=== PATIENT | female | born 1950 | race Caucasian/White ===

== ENCOUNTER 2018-09-19 10:33 | Emergency (ER) | payer MEDICARE, MEDICAID ==
--- OUTSIDE RECORDS SUMMARY | 2018-09-19 10:52 | XMS REPORT | Continuity of Care Document ---
:1950 External Reference #:[id number] Author Name Teena Ivan Care Team Providers Name Role Phone Dianne Cabello DO Primary Care Physician Unavailable Payers Date Identification Numbers Payment Provider Subscriber Policy Number: [id number] [employer] Medicare Angeles Farias PayID: [id number] [address] [place] [address] Problems Active Problems Provider Date Anxiety state Dallas Loving MD Onset: 09/08/2018 Orthopnea Dallas Loving MD Onset: 09/08/2018 Hyperlipidemia screening Dallas Loving MD Onset: 09/08/2018 Tinnitus of vascular origin Dallas Loving MD Onset: 09/08/2018 Heart murmur Dallas Loving MD Onset: 09/08/2018 Preoperative cardiovascular examination Dallas Loving MD Onset: 09/08/2018 Family History Date Family Member(s) Observation Comments General Diabetes General Heart Disease General Hypertension General Cancer Social History Type Date Description Comments Sex Unknown Lives With Sister Occupation Retired ETOH Use Denies alcohol use Tobacco Use Start: Unknown Patient has never smoked Smoking Status Reviewed: 09/08/18 Patient has never smoked Exercise Type/Frequency Exercises sporadically Allergies, Adverse Reactions, Alerts Active Allergies Reaction Severity Comments Date Codeine 06/30/2018 Medications Active Medications SIG Qnty Indications Ordering Provider Date Oxycodone-Acetaminophe 1 tab by mouth 42tabs M16.12 Gera Ayoub M.D. 09/03 n every 4 hours as 5-325mg Tablets needed pain Rexulti take 1 tab daily 30tabs Dallas Loving MD 07/10/2018 2mg Tablets Toprol XL 1/2 by mouth 30tabs Dianne Cabello 06/30/2018 25mg Tablets ER every day DO 24HR Miralax twice a day as 119gm K58.1 Dianne Cabello, 06/30/2018 [id number] Powder needed DO Nexium 24HR 1 by mouth every Unknown 20mg Tablets day DR Valacyclovir HCL 1 by mouth every Unknown 1gm 8 hours x 7 days Tablets as needed. Alprazolam 1/2 tab as 30tabs F41.9 Dallas Loving MD 2mg Tablets needed for anxiety, panic attacks Hydrocodone-Acetaminop 0.5 tab by mouth 30tabs Gera Ayoub M.D. hen every 6-8 hours 5-325mg Tablets as needed for pain Triamterene/Hydrochlor pt taking one a Unknown othiazide day 37.5-25mg Capsules Motrin Ib take 3 tabs Unknown 200mg Tablets three times per day as needed for pain History Medications Fluoxetine HCL not taking----1 by 30tabs F32.9 Dianne Cabello, 06/30/2018 - (PMDD) mouth every day DO 07/22/2018 20mg Tablets Metoprolol 1 by mouth every day Unknown - Succinate ER 06/30/2018 50mg Tablets ER 24HR Vital Signs Date Vital Result Comment 09/08/2018 4:08pm Height 61 inches 5'1" Weight 107.00 lb Heart Rate 68 /min BP Systolic 110 mmHg BP Diastolic 69 mmHg Respiratory Rate 16 /min Body Temperature 98.8 F Pain Level 8 O2 % BldC Oximetry 98 % BMI (Body Mass Index) 20.2 kg/m2 09/03/2018 3:23pm Height 61 inches 5'1" Weight 107.00 lb BP Systolic 118 mmHg BP Diastolic 64 mmHg Respiratory Rate 20 /min Body Temperature 98.4 F Pain Level 8 BMI (Body Mass Index) 20.2 kg/m2 08/18/2018 3:16pm Weight 107.00 lb Heart Rate 68 /min BP Systolic 102 mmHg BP Diastolic 64 mmHg Respiratory Rate 16 /min Body Temperature 96.5 F O2 % BldC Oximetry 97 % 08/11/2018 3:14pm Height 61 inches 5'1" Weight 102.00 lb BP Systolic 110 mmHg BP Diastolic 68 mmHg Respiratory Rate 18 /min Body Temperature 98.2 F Pain Level 8 BMI (Body Mass Index) 19.3 kg/m2 07/22/2018 2:17pm Weight 102.00 lb Heart Rate 64 /min BP Systolic 128 mmHg BP Diastolic 72 mmHg Respiratory Rate 16 /min O2 % BldC Oximetry 98 % 06/30/2018 2:41pm Height 61 inches 5'1" Weight 103.00 lb Heart Rate 64 /min BP Systolic 90 mmHg BP Diastolic 64 mmHg Body Temperature 99.3 F Pain Level 7 O2 % BldC Oximetry 96 % BMI (Body Mass Index) 19.5 kg/m2 Encounters Type Date Location Provider Dx Diagnosis Office Visit 08/18/2018 [facility] Internal Dianne Cabello, H93.A2 Pulsatile 3:00p Medicine - Suite DO tinnitus, left ear R F32.9 Major depressive disorder, single episode, unspecified F41.9 Anxiety disorder, unspecified Office Visit 08/11/2018 [facility] Gera Ayoub, 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 at [facility]09/26/2018 3:20 pm - Dianne Cabello DO at [facility] Internal Medicine - [address]/22/2018 1:45 pm - Gera Ayoub M.D. at [facility] - Dallas Loving MDZ01.810 Encounter for preprocedural cardiovascular cndwzawrkugA33.1 Cardiac murmur, lbtahzqynmrM87.A2 Pulsatile tinnitus, left earZ13.220 Encounter for screening for lipoid rwvioadttG58.01 YojaaivyoS60.9 Anxiety disorder, unspecified
--- OUTSIDE RECORDS SUMMARY | 2018-09-19 10:52 | XMS REPORT | Continuity of Care Document ---
:1950 External Reference #:[id number] Author Name GarciaJojo Care Team Providers Name Role Phone Dianne Cabello DO Primary Care Physician Unavailable Payers Date Identification Numbers Payment Provider Subscriber Policy Number: [id number] [employer] Medicare Angeles Farias PayID: [id number] [address] [place] [address] Family History Date Family Member(s) Observation Comments General Diabetes General Heart Disease General Hypertension General Cancer Social History Type Date Description Comments Sex Unknown Lives With Sister Occupation Retired ETOH Use Denies alcohol use Tobacco Use Start: Unknown Patient has never smoked Smoking Status Reviewed: 09/03/18 Patient has never smoked Exercise Type/Frequency Exercises [...] Toprol XL 1/2 by mouth 30tabs Dianne Cabello, 06/30/2018 25mg Tablets ER every day DO [...] 24HR Vital Signs Date Vital Result Comment 09/03/2018 3:23pm Height 61 inches 5'1" Weight [...] Location Provider Dx Diagnosis Office Visit 08/18/2018 [facility] Dianne Cabello, H93.A2 Pulsatile 3:00p Medicine - Suite DO tinnitus, left ear R F32.9 Major depressive disorder, single episode, unspecified F41.9 Anxiety disorder, unspecified Office Visit 08/11/2018 Orth[facility] Gera Ayoub, 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 at [facility]09/26/2018 3:20 pm - Dianne Cabello DO at [facility] Internal Medicine - [address]/22/2018 1:45 pm - Gera Ayoub M.D. at [facility]09/03/2018 - Gera Ayoub M.D.M16.12 Unilateral primary osteoarthritis, left hipNew Medication:Oxycodone-Acetaminophen 5-325 mg - 1 tab by mouth every 4 hours as needed painFollow up:Follow up: Getting ready for total hip left Use the walker please Rest some Will try some percocet.
[2018-09-19 12:28] VITALS: BP 146/103
== END 2018-09-19 13:52 | disposition left against medical advice (07) ==
LOC: ED 10:33
DX: Z53.21 Procedure and treatment not carried out due to patient leaving prior to being seen by health care provider (principal)
CPT/HCPCS: 99281

== ENCOUNTER 2018-10-07 05:40 | Inpatient (IN) | payer MEDICARE, MEDICAID ==
--- NOTE | 2018-09-22 15:58 | HP ---
HISTORY AND PHYSICAL: DATE OF ADMISSION: 10/07/18 The patient is entering [facility] on 10/07/18 for a left total hip replacement. CHIEF COMPLAINT: Left hip region pain, groin pain as well. HISTORY OF PRESENT ILLNESS: She has had problems with this hip increasingly over the last couple of years. Her right hip had a hip replacement at [place], [place], in [address] Yancey at the [facility] in [place]. Because the left hip has been progressively totally disabling her and severely arthritic with bone-on -bone arthritis by radiograph, the left total hip replacement has now been recommended. PAST MEDICAL HISTORY: Currently under the care with Dr. Loving and he has been helping her with benzod iazepine dependence with tapering doses of alprazolam. Medical problems include anxiety, orthopnea, hyperlipidemia, tinnitus, heart murmur. No hypertension. No chest pain. She has never been smoker . She does not drink. She had breast augmentation surgery years ago and she does have breast implan ts. No allergies to metal. She has had some hypertension. She has had anxiety and depression. No GI problems. No problems, although she has used an lafr-xof-bhuntdo acid office technologist. MEDICATIONS: Her other meds include recent trial of oxycodone which she threw away because it was ma denzel her sick and she now has a prescription for hydrocodone 5/325. Also triamterene/hydrochlorothia zide 37.5/25 mg 1 a day, valacyclovir 1 g by mouth every 8 hours for 7 days when needed, Toprol-XL 25 mg one-half tablet by mouth everyday, Rexulti 2 mg 1 a day for depression. ALLERGIES: CODEINE. FAMILY HISTORY: Positive for diabetes, cardiac, hypertension, and cancer. SOCIAL HISTORY: Lives with her sister temporarily. She is retired. No tobacco use. No alcohol use . She is a walker and a swimmer and enjoys painting. She is right handed. REVIEW OF SYSTEMS: Negative for fevers, chills, chest pain, shortness of breath. She has not had any GI or problems. She has had some weakness, some fatigue, and depression and anxiety. PHYSICAL EXAMINATION GENERAL: Well nourished, well developed, not acutely distressed. VITAL SIGNS: 5 feet 1 inch in height, 105 pounds. Pulse is 80, blood pressure 108/70. EXTREMITIES: Antalgic gait on the left. The left straight-leg raising in painful in the left groin, in the right is not. Left hip nontender anteriorly, laterally, and posteriorly. No masses are appr eciated. Left hip flexion is painful at 75 degrees flexion, abduction 30 degrees with pain, extensio n 20 degrees with pain, rotation is limited to ER, 15 IR, neutral with pain, though no swelling of th e left leg, ankle and foot, certainly possibly some atrophy around the left hip and thigh. The left d orsalis pedis pulse is 2+ and no ankle edema bilaterally. DIAGNOSTIC STUDIES: Radiographs showed the right total hip replacement in satisfactory alignment. The left hip has severe arthritis with vqzr-ws-szhr sclerosis, cyst formation, and an osteophyte form ation. IMPRESSION: Severe arthritis of the left hip. PLAN: Left total hip replacement. Goals, risks, and complications were reviewed with her and her qu estions were answered. [id number]/[facility] #: [id number]
[~2018-10-07 05:40] MED LIST: Buffered Lidocaine 1% SYRIN* 1 ML/SYRINGE INTRADERM ONE; Tranexamic Acid 1,000 MG in NS 0.9% 50 ML* (outpatient use) IV SCH
[2018-10-07] MEDS ORDERED: Lactated Ringers 1000 ML Bag* 1,000 ML IV SCH (06:00)
[2018-10-07] MEDS ORDERED: ceFAZolin 2 GM in NS PREMIX(*) 2 GM/100 ML BAG IVPB ONE (06:21)
[2018-10-07] MEDS ORDERED: Buffered Lidocaine 1% SYRIN* 1 ML/SYRINGE INTRADERM ONE (06:21)
[2018-10-07] MEDS ORDERED: Ondansetron INJ* 2 MG/ML VIAL ONE (07:08)
[2018-10-07] MEDS ORDERED: Dexamethasone IV* 4 MG/ML 1 ML (4 MG) ONE (07:08)
[2018-10-07] MEDS ORDERED: fentaNYL* 50 MCG/ML 2 ML VIAL (100 MCG VIAL) ONE ×4 (07:08→10:29)
[2018-10-07] MEDS ORDERED: Propofol* 10 MG/ML 20 ML BTL ONE (07:08)
[2018-10-07] MEDS ORDERED: Lidocaine 2% PF * 5 ML VIAL ONE (07:08)
[2018-10-07] MEDS ORDERED: KETAMINE HCL* 50 MG/ML 10 ML VIAL ONE (07:09)
[2018-10-07] MEDS ORDERED: Midazolam* 1 MG/ML 5 ML VIAL (5 MG) ONE (07:09)
[2018-10-07] MEDS ORDERED: Bupivacaine 0.5%* 50 ML MDV VIAL ONE (07:31)
[2018-10-07] MEDS ORDERED: Bupivacaine 0.5% W/EPI SDV* 10 ML VIAL INJ ONE (07:31)
[2018-10-07] MEDS ORDERED: Cisatracurium* 2 MG/ML MDV 5 ML ONE (07:34)
[2018-10-07] MEDS ORDERED: EPHEDrine (Pressors)* 50 MG/ML VIAL ONE (08:38)
[2018-10-07] MEDS ORDERED: HYDROmorphone INJ1* 1 MG/ML SYRINGE ONE ×2 (09:14→10:29)
[2018-10-07] MEDS ORDERED: Naloxone* 0.4 MG/ML 1 ML VIAL IV PRN (09:15)
[2018-10-07] MEDS ORDERED: Ondansetron INJ* 2 MG/ML VIAL IV PRN (09:15)
[2018-10-07] MEDS ORDERED: Ketorolac INJ* 30 MG/ML 1 ML VIAL ONE (09:16)
[2018-10-07] MEDS ORDERED: Glycopyrrolate IV* 0.2 MG/ML 1 ML VIAL ONE (09:23)
[2018-10-07] MEDS ORDERED: Neostigmine Methylsulfate* 1 MG/ML 10 ML VIAL (1 mg/ml) ONE (09:23)
[2018-10-07] MEDS ORDERED: diPHENhydraMINE IV* 50 MG/ML 1 ml VIAL (BENADRYL) IV PRN (09:54)
[2018-10-07] MEDS ORDERED: Cyclobenzaprine TAB* 10 MG PO PRN (09:54)
[2018-10-07] MEDS ORDERED: oxyCODONE TAB* 5 MG TAB PO PRN (09:54)
[2018-10-07] MEDS ORDERED: diPHENhydraMINE PO* 25 MG PO PRN (09:54)
[2018-10-07] MEDS ORDERED: Morphine 4 MG/ML VIAL (1 ml) 4 MG/ML VIAL IV PRN (09:54)
[2018-10-07] MEDS ORDERED: Magnesium Hydroxide LIQ* 30 ML UDC PO PRN (09:54)
[2018-10-07] MEDS ORDERED: LINACLOTIDE 72 MCG PO PRN (09:58)
[2018-10-07] MEDS ORDERED: ValACYclovir (*) 1 GM TAB PO PRN (09:58)
[2018-10-07] MEDS: fentaNYL* 50 MCG/ML 2 ML VIAL (100 MCG VIAL) IV PRN ×2 (10:41→11:13)
[2018-10-07] MEDS: HYDROmorphone INJ1* 1 MG/ML SYRINGE IV PRN ×2 (10:57→11:30)
[2018-10-07] MEDS ORDERED: Enalaprilat IV* 1.25 MG/ML 2 ML VIAL (2.5 MG) ONE (11:42)
--- NOTE | 2018-10-07 11:55 | OP ---
CC: [facility] Internal Medicine, Dr. Loving; Dr. Dianne Cabello * DATE OF OPERATION: 10/07/18 - ROOM #343 DATE OF : 54 SURGEON: eGra Ayoub MD. BOOKKEEPING SERVICE SALES AGENT: HARLEEN Singletary, registered sales assistant, and Krystin Gonzales. ANESTHESIOLOGIST: Dr. Wang. ANESTHESIA: Endotracheal tube, general. PRE-OP DIAGNOSIS: Severe arthritis of the left hip. POST-OP DIAGNOSIS: Severe arthritis of the left hip. OPERATIVE PROCEDURE: Left total hip replacement. COMPONENTS UTILIZED: [employer] Continuum cup 46 mm outer diameter with an elevated liner placed posteriorly for a 28 head, on the femoral side an M/L taper standard reduced neck 7.5 and the head is a -3.5, 28 mm cobalt chrome. COMPLICATIONS: There were no complications. DRAINS: There were no drains. ESTIMATED BLOOD LOSS: 200 mL. Replacement crystalloid fluids. INDICATIONS: Severe arthritis of the left hip. It has been no longer responsive to nonoperative care. She has had a right total hip replacement done several years ago in [place]. DESCRIPTION OF PROCEDURE: The patient was brought to the operating room and placed on the operating room table in the supine position. Following the administration of general anesthetic, insertion of an endotracheal tube, Chambers catheter was inserted. The patient was carefully placed on the right side with an axillary pad on the right downside and I checked to see that there is no pressure on the peroneal nerve at the fibular head. The pelvis was secured over the ASIS and the sacrum with a hip positioner and a folded blanket was placed under the right greater trochanter to bring the left hip closer to the ceiling. The groin was sealed off. The left hip was given a preliminary chlorhexidine prep and then a formal ChloraPrep from the left flank to the foot. After prepping, draping, and sealing off, we did our universal protocol time-out confirming Angeles Farias and the plan for left total hip replacement. We all agreed and we proceeded. The hip was approached with a slightly curving posterolateral skin incision going from the greater trochanter distally for 2 inches and curving proximally for approximately 2 inches. The skin and subcu divided. Careful hemostasis checked and achieved throughout the case utilizing electrocautery. The fascia chidi was opened in line with the skin incision over the greater trochanter. A Charnley retractor was inserted. The trochanteric bursa was rubbed posteriorly. The gluteus medius was protected first exposing the piriformis and the conjoint tendon. Each of these tendons was marked with a #2 Surgidac suture and the hip was entered going along the superior side of the pyriformis tendon and then careful posterior approach staying on the bone. The hip had some clear straw-colored synovial fluid. The gluteus medius was also protected with a Hohmann retractor. Superior capsulotomy was done and then the posterior capsulotomy was completed. The hip was dislocated without any difficulty. The femoral neck was marked about a fingerbreadth proximal to the lesser trochanter. The femoral head and neck removed with a saw. Retraction was obtained for the acetabulum with sharp Hohmann's anteriorly and posteriorly , blunt Hohmann's superiorly and inferiorly. The labrum was excised posteriorly , superiorly, and anteriorly. There was medial osteophyte. There was medial soft tissues that were removed entirely and then reaming was done 42 through 46 , and at 46, we had nice bleeding subchondral and cancellous bone. A 46 Continuum cup was impacted into position in 45 degrees of abduction, 20 degrees of anteversion with one screw inserted superiorly. Elevated liner for a 28 head was placed posteriorly. Acetabulum was packed and attention was turned to the femoral side. On the femoral side, we used a canal finder, trochanteric reamer, lateralizer, broaching 4 through 7.5. At 7.5, we did a reduction with a reduced nice +0 head with nice tight fit. A reduced neck M/L taper standard 7.5 stem was impacted into position in 15 to 20 degrees of anteversion. This stem seemed slightly proud. A trial reduction was done with a -3.5, 28 mm head with nice fit, negative push , pull, and extension. No tendency towards levering, flexion of 90 degrees, allowed adduction of 30 to 40 degrees, and internal rotation of 30 to 40 degrees prior to dislocation. The trunnion was cleaned and a -3.5, 28 mm head was impacted into position. The hip was reduced, careful hemostasis checked and achieved as we closed, and we irrigated several times with saline. We swabbed the soft tissues with clean lap sponges. The pyriformis and conjoint tendon were reapproximated through two drill holes to the posterior superior greater trochanter with the same stitches that we used on the way in, and the fascia chidi then closed with interrupted #1 [id number] Vicryl sutures, the fascia of gluteus raquel with the same. Deep subcu closed with 0 Vicryl, superficial subcu 2-0 Vicryl, and then jose rafael on the skin. The skin was washed and dried and covered with Betadine- soaked Release, followed by sterile gauze, ABD pad, and then paper tape. infiltrated with 40 mL of 0.5% Marcaine without epinephrine, and we also used Ancef perioperatively and tranexamic acid was also given at the start of the case. The patient was returned to the hospital bed in the recovery room in stable and satisfactory condition having tolerated the procedure very well. [id number]/[facility] #: [id number] SHANTELL
[2018-10-07] MEDS: Lactated Ringers 1000 ML Bag* 1,000 ML IV SCH ×2 (12:55→22:40)
[2018-10-07] MEDS: traMADol TAB* 50 MG PO SCH ×2 (13:57→20:50)
[2018-10-07] MEDS: HYDROcodone/ACETAMIN 5-325 MG* 1 TAB PO PRN ×3 (13:58→22:38)
[2018-10-07] MEDS: ALPRAZolam TAB* 0.5 MG PO PRN ×2 (13:58→22:38)
[2018-10-07] MEDS ORDERED: ALPRAZolam TAB* 0.5 MG PO SCH (14:00)
[2018-10-07] MEDS: Acetaminophen TAB* 325 MG PO SCH ×2 (14:05→21:46)
[2018-10-07] MEDS ORDERED: Melatonin 3 MG TAB PO PRN (14:12)
--- NOTE | 2018-10-07 14:20 | CONS ---
CC: Dr. Loving; Dr. Cabello; Dr. Ayoub * CONSULTATION REPORT: DATE OF CONSULT: 10/07/18 PRIMARY CARE PROVIDER: Dr. Loving, Dr. Cabello at [facility]. REQUESTING PHYSICIAN: Dr. Ayoub. ATTENDING PHYSICIAN: Dr. Martini (dictated by HARLEEN Pendleton). REASON FOR CONSULTATION: Co-medical management. HISTORY OF PRESENT ILLNESS/HOSPITAL COURSE: For full and complete details, please refer to history and physical dictated on 09/22/[address] Ayoub, but in short, Ms. Farias is a 68-year-old female with a past medical history of hypertension, depression, and anxiety, who presented to [facility] today for an elective left total hip arthroplasty. She is seen in her room postoperatively. She complains of a dull pain in the left hip, rated at 6-7/10. She states she feels a little shaky and hungry, but denies palpitations, dizziness, lightheadedness, headache, nausea, chest pain, shortness of breath. She complains of numbness and tingling at the left hip area. PAST MEDICAL HISTORY: 1. Hypertension. 2. Hyperlipidemia. 3. Heart murmur. 4. GERD. 5. Hiatal hernia. 6. IBS with constipation. 7. Depression. 8. Anxiety. 9. Tinnitus. PAST SURGICAL HISTORY: Right total hip arthroplasty, breast augmentation with implantation, tonsillectomy. HOME MEDICATIONS: 1. Alprazolam 0.5 mg p.o. t.i.d. 2. Rexulti 3 mg p.o. daily. 3. Caltrate 600 plus D plus min 300-800 mg 1 tab p.o. b.i.d. 4. Hydrocodone/acetaminophen 5/325 one tab p.o. q.6 hours p.r.n. pain. 5. Ibuprofen 600 mg p.o. q.8 hours p.r.n. pain. 6. Linaclotide 72 mcg p.o. daily p.r.n. constipation. 7. Metoprolol succinate XL 12.5 mg p.o. daily. 8. Ranitidine 150 mg p.o. daily. 9. Triamterene/HCTZ 32.5/25 one cap p.o. q.a.m. 10. Valacyclovir 1 g p.o. daily p.r.n. itching. DRUG ALLERGIES: CODEINE, itch. FAMILY HISTORY: Sister has diabetes mellitus. Father of an [place]. Mother from metastatic breast cancer. No family history of CVA. SOCIAL HISTORY: The patient denies current or former use of tobacco. She used to drink approximately 3 drinks per week, but quit drinking alcohol approximately 4 months ago. She does not use any illicit drugs. She is currently unemployed. She lives with her sister. In the event that she is unable to make her own medical decisions, she has appointed her sister Mili Farias who is her healthcare proxy to be her surrogate decision maker. REVIEW OF SYSTEMS: A 10-point review of systems has been performed and all the pertinent positives and negatives are in the HPI. All other systems are negative. PHYSICAL EXAM: General: Ms. Farias is a well-developed, well-nourished, average weight, middle-aged white woman who is sitting up in bed. She appears somewhat groggy, but is awake, cooperative, appropriate. She appears to be in no acute distress. HEENT: PERRL. EOMI. Nonicteric sclerae. Hearing grossly intact, but the patient does complain of tinnitus. Oral mucous membranes are dry. Tongue is at midline. Soft palate elevates symmetrically. Posterior pharynx is clear. Cardiovascular: Regular rate and rhythm with S1, S2 present without murmurs, rubs, clicks, or gallops. There is no appreciable JVD. There is no peripheral edema. Radial and pedal pulses are palpable. Pulmonary: Symmetrical chest expansion without use of accessory muscles. Lungs: Clear to auscultation bilaterally without rhonchi, wheezes, or rales. There is no digital clubbing or cyanosis. Abdomen: Flat. Bowel sounds noted in all quadrants. The abdomen is soft. There is no tenderness to palpation. There is no hepatosplenomegaly. Musculoskeletal: The patient is able to move all of her extremities. She does have a dressing in place to the left hip that is clean, dry, and intact. Ice has been placed over this area. Neuro: The patient is awake. She is alert and oriented x3 with cranial nerves grossly intact. She is again able to move all of her extremities. Sensation is intact distally in bilateral upper and lower extremities. ASSESSMENT AND PLAN: Ms. Farias is a 68-year-old female with past medical history of hypertension, depression, and anxiety, who presented to [facility] today for an elective left total hip arthroplasty. The patient will be admitted inpatient for: 1. Left total hip arthroplasty. The patient is postop day 0. Management per Ortho. 2. Hypertension. The patient's home medications include metoprolol and Dyazide. Her Dyazide will be held. Metoprolol has been ordered with hold parameters in place. 3. Depression/anxiety. Please continue the patient's home medication Rexulti. Also continue home medication alprazolam t.i.d. p.r.n. 4. Gastroesophageal reflux disease, hiatal hernia. Continue ranitidine. 5. Irritable bowel syndrome with constipation. Continue Linzess p.r.n. 6. Hyperlipidemia. The patient has past medical history of hyperlipidemia and does not appear to be on treatment currently. 7. DVT prophylaxis: Per Ortho, the patient has been placed on aspirin 325 mg p.o. daily. 8. Code status: Full code. TIME SPENT: Approximately 35 minutes was spent on this consultation, greater than half that time was spent [id number] with the patient obtaining history, performing physical, and reviewing the plan of care. The case has been reviewed with my attending Dr. Martini, who is in agreement with the plan of care. HARLEEN CLARK [id number]/[facility] #: [id number] MTDD
--- NOTE | 2018-10-07 16:11 | PN ---
Progress Note - Progress Note Date of Service: 10/07/18 SOAP: Pt seen at bedside POD [address] Ayoub. She feels well without CP, SOB, dizziness, nausea. Hip pain is well controlled and she has already walked with PT. Dressing CDI, thigh soft, DF/PF inctact, DP2+, sensation intact to light touch distally.
[2018-10-07] MEDS: ceFAZolin 1 GM ADVAN(*) 1 GM in NS 0.9% 50 ML* 50 ML IVPB SCH ×2 (17:02→23:35)
[2018-10-07] MEDS: Docusate CAP* 100 MG PO SCH (20:50)
[2018-10-07] MEDS: Magnesium Hydroxide LIQ* 30 ML UDC PO SCH (20:50)
[2018-10-07] MEDS ORDERED: [UNRECOGNIZED DRUG - OTHER] PO SCH (21:00)
[2018-10-08] MEDS: traMADol TAB* 50 MG PO SCH ×4 (01:47→20:46)
[2018-10-08] MEDS: HYDROcodone/ACETAMIN 5-325 MG* 1 TAB PO PRN ×3 (06:11→20:22)
[2018-10-08] MEDS: Acetaminophen TAB* 325 MG PO SCH ×3 (06:12→22:04)
[2018-10-08 06:36] LABS: Hematocrit 29 % (35-47); Hemoglobin 9.9 g/dL (12.0-16.0); Mean Platelet Volume 7.6 fL (7.4-10.4); Platelet Count 211 10^3/uL (150-450)
[2018-10-08 07:02] LABS: BUN/Creatinine Ratio 21.1 (8-20); Calcium 8.9 mg/dL (8.6-10.3); EGFR African American 92.1 (>60); EGFR Non-African American 76.1 (>60); Potassium 3.6 mmol/L (3.5-5.0)
[2018-10-08] MEDS: ceFAZolin 1 GM ADVAN(*) 1 GM in NS 0.9% 50 ML* 50 ML IVPB SCH (07:44)
[2018-10-08] MEDS: Famotidine TAB* 20 MG PO SCH (07:50)
[2018-10-08] MEDS: Aspirin TAB* 325 MG PO SCH (08:58)
[2018-10-08] MEDS: Magnesium Hydroxide LIQ* 30 ML UDC PO SCH ×2 (08:58→20:45)
[2018-10-08] MEDS: Metoprolol Succinate XL TAB* 25 MG PO SCH (08:58)
[2018-10-08] MEDS: Docusate CAP* 100 MG PO SCH ×2 (08:58→20:45)
[2018-10-08] MEDS ORDERED: Metoprolol Succinate XL TAB* 25 MG PO SCH (09:00)
[2018-10-08] MEDS: PTO: Brexpiprazole (NF) 3 MG TAB PO SCH (09:06)
[2018-10-08] MEDS ORDERED: ValACYclovir (*) 500 MG TAB PO PRN (10:00)
--- NOTE | 2018-10-08 11:43 | PN ---
Progress Note - Progress Note Date of Service: 10/08/18 SOAP: Subjective: []Pt seen and examined at bedside, she feels well though reports she has not received alprazolam as she takes at home. At home per patient and confirmed by [facility] and [facility] pharmacy she takes 2 mg BID. Reports feeling overwhelmed. Denies CP, SOB, dizziness, nausea. Objective: []Gen: Appears well, NAD LLE: Left hip dressing CDI, thigh is soft, DF/PF intact, DP2+, sensation intact to light touch distally Calves supple and nontender without erythema, edema or palpable cords Assessment: []POD [address] Ayoub Plan: []WBAT Posterior hip precautions PT/OT ASA 325 qd x 30 days post op Anticipate DC home tomorrow Med rec had alprazolam as 0.5 mg po TID PRN, adjusted to 2 mg BID scheduled as patient takes at home Vital Signs Temp 98.1 F 10/08/18 11:29 Pulse 84 10/08/18 11:29 Resp 17 10/08/18 11:29 BP 157/67 10/08/18 11:29 Pulse Ox 99 10/08/18 11:29 Intake & Output 10/07/18 10/08/18 10/08/18 18:59 06:59 18:59 Intake Total 2420 1890 210 Output Total 1550 500 Balance 870 1390 210 Intake: IV Fluids 2000 990 LR 1900 990 NS 100ML, Cefazolin 2G 100 Oral 420 900 210 Output: Chambers 1550 500 Other: # Bowel Movements 0 Laboratory Last Values Hgb 9.9 g/dL (12.0-16.0) L 10/08/18 05:55 Hct 29 % (35-47) L 10/08/18 05:55 Plt Count 211 10^3/uL (150-450) 10/08/18 05:55 MPV 7.6 fL (7.4-10.4) 10/08/18 05:55 Sodium 139 mmol/L (135-145) 10/08/18 05:55 Potassium 3.6 mmol/L (3.5-5.0) 10/08/18 05:55 Chloride 102 mmol/L (101-111) 10/08/18 05:55 Carbon Dioxide 36 mmol/L (22-32) H 10/08/18 05:55 Anion Gap 1 mmol/L (2-11) L 10/08/18 05:55 BUN 16 mg/dL (6-24) 10/08/18 05:55 Creatinine 0.76 mg/dL (0.51-0.95) 10/08/18 05:55 Est GFR ( Amer) 92.1 (>60) 10/08/18 05:55 Est GFR (Non-Af Amer) 76.1 (>60) 10/08/18 05:55 BUN/Creatinine Ratio 21.1 (8-20) H 10/08/18 05:55 Glucose 121 mg/dL (70-100) H 10/08/18 05:55 Calcium 8.9 mg/dL (8.6-10.3) 10/08/18 05:55
[2018-10-08] MEDS: ALPRAZolam TAB* 0.5 MG PO SCH ×2 (11:59→22:09)
[2018-10-08] MEDS ORDERED: ALPRAZolam TAB* 0.5 MG PO SCH (14:00)
--- NOTE | 2018-10-08 14:51 | DS ---
Orthopedic Discharge Summary - Discharge Summary Date of Admission:10/07/18 Date of Discharge: 10/09/18 Date of Surgery: 10/07/18 Attending Orthopedic Provider: Dr Ayoub Pre-operative Diagnosis: Left hip osteoarthritis Operative Procedure: left total hip replacement Disposition of Patient: home Condition of Patient: stable History: FRANCESCA MILLER is a 68 year old F with years of increasingly severe left hip pain. Patient has failed conservative management and has elected to undergo a left total hip replacement Hospital Course: FRANCESCA was admitted to [facility] on 10/07/18. Patient underwent a left total hip replacement without complication followed by a brief recovery in PACU and transfer to the Short Stay Surgical Unit in stable condition. Our hospitalist service, physical therapy and occupational therapy also participated in this patients care. Post-op day 1: patient was alert and in no acute distress. Dressing was clean, dry and intact. Operative extremity dorsiflexion and plantarflexion intact, sensation intact to light touch distally , DP2+. Post op day 2 well appearing, NAD, dressing changed, incision CDI, NVI distally. PT goals met and patient ready for DC to home Home Medications Medication Instructions Recorded Confirmed Type ALPRAZolam Alprazolam 0.5 mg PO TID 09/30/18 10/07/18 History Brexpiprazole (NF) [Rexulti 3 mg 3 mg PO QAM 09/30/18 10/07/18 History tab (NF)] Calcium/D3/Mag Ox/Drilling [employer]man/Miquel/Zn 1 tab PO BID 09/30/18 10/07/18 History [Caltrate+D3 Plus Mineral Minis] Ibuprofen 600 mg PO Q8H PRN 09/30/18 10/07/18 History Linaclotide [Linzess] 72 mcg PO DAILY PRN 09/30/18 10/07/18 History Metoprolol Succinate XL TAB* 12.5 mg PO QAM 09/30/18 10/07/18 History [Toprol XL TAB*] Triamterene/HCTZ 37.5-25 MG* 1 cap PO QAM 09/30/18 10/07/18 History [Dyazide CAP*] ValACYclovir (*) [Valtrex 1 GM(*)] 1 gm PO DAILY PRN 09/30/18 10/07/18 History raNITIdine HCl [Acid Control] 150 mg PO QAM 09/30/18 10/07/18 History Acetaminophen TAB* [Tylenol TAB*] 975 mg PO Q8HR tab 10/08/18 Rx Aspirin TAB* [Aspirin 325 MG TAB*] 325 mg PO DAILY #30 tab 10/08/18 Rx Docusate CAP* [Colace Cap*] 100 mg PO BID PRN #90 cap 10/08/18 Rx HYDROcodone/ACETAMIN 5-325 MG* 2 tab PO Q4H PRN #56 tab MDD 8 10/08/18 Rx [[place] 5-325 TAB*] Discharge Instructions following Orthopedic Surgery: Activity: * Weight Bearing as tolerated * Continue physical therapy and occupational therapy exercises as shown * Home PT Hip replacements: Continue Hip Precautions- do not cross legs or bend greater than 90 degrees/squat Wound care: * OK to shower on post-op day 3, no bathing, swimming, or submerging wound. * Use gentle soap, pat dry. Cover with gauze, ANNETTA wrap or tape. * Visiting home nurse to assess wound, remove stables in 2 weeks post op Call Orthopedic office for: * Increased drainage * Redness * Increased pain * Fever Go to ER with shortness of breath or chest pain. Diet: * Regular diet * Increase fluids and fiber to prevent constipation. * Continue to use stool softeners, call office if no bowel motion within 48 hours. Medications See Home Medication List in your packet for medications that you should take after discharge. DVT Prophylaxis: Increases bleeding tendency Aspirin Dosin mg once a day for 30 days post op Pain Control: -- hydrocodone acetaminophen 5/325 mg 1-2 tabs by mouth every 4-6 hours as needed for pain. Maximum of 8 tabs per day. hold for sedation. wean off as soon as pain allows. Please note that hydrocodone/acetaminophen contains Tylenol (acetaminophen). Maximum daily dose of Tylenol is 4000 mg from all sources. Antibiotics are required prior to any dental work. FOLLOW UP: Follow up with [[facility]] Within 4 weeks, call for appointment Please call our office with any questions or concerns ([phone]) RX to [facility]
--- NOTE | 2018-10-08 15:27 | PN ---
Progress Note - Progress Note Date of Service: 10/08/18 Note: . POD #1 VSStable L hip film all OK. Hct 29%.. Awake, cooperative, breathing easily. Left hip dressing is dry. Doing exercises for the left hip and knee and ankle. Active movements IR, ER, Flex and Ext. Ankle up down in and out. Imp: Acute blood loss anemia. Plans: Drinking, exercises, and up with the walker.
--- NOTE | 2018-10-08 16:25 | PN ---
Hospitalist Progress Note Date of Service: 10/08/18 Chart and labs evaluated. Patient stable post-operatively. Continue ortho plan of care. Will continue to follow distantly.
[2018-10-09] MEDS: traMADol TAB* 50 MG PO SCH ×3 (01:49→14:46)
[2018-10-09] MEDS: HYDROcodone/ACETAMIN 5-325 MG* 1 TAB PO PRN ×3 (04:22→14:07)
[2018-10-09] MEDS: Acetaminophen TAB* 325 MG PO SCH ×2 (04:25→08:42)
[2018-10-09 06:44] LABS: Hematocrit 28 % (35-47); Hemoglobin 9.9 g/dL (12.0-16.0); Mean Platelet Volume 7.7 fL (7.4-10.4); Platelet Count 192 10^3/uL (150-450)
[2018-10-09] MEDS: Metoprolol Succinate XL TAB* 25 MG PO SCH (08:40)
[2018-10-09] MEDS: PTO: Brexpiprazole (NF) 3 MG TAB PO SCH (08:40)
[2018-10-09] MEDS: Docusate CAP* 100 MG PO SCH (08:41)
[2018-10-09] MEDS: Famotidine TAB* 20 MG PO SCH (08:43)
[2018-10-09] MEDS: Aspirin TAB* 325 MG PO SCH (08:43)
[2018-10-09] MEDS: Magnesium Hydroxide LIQ* 30 ML UDC PO SCH (08:44)
[2018-10-09] MEDS: ALPRAZolam TAB* 0.5 MG PO SCH (10:42)
--- NOTE | 2018-10-09 10:56 | PN ---
Progress Note - Progress Note Date of Service: 10/09/18 SOAP: Subjective: []Pt seen at bedside. She feels well and has met PT goals. Denies CP, SOB, dizziness, nausea. Hip pain is well controlled. Objective: []Gen: Appears well, NAD LLE: Left hip dressing CDI, thigh is soft, DF/PF intact, DP2+, sensation intact to light touch distally Calves supple and nontender without erythema, edema or palpable cords Assessment: []POD [address] Ayoub Plan: []WBAT Posterior hip precautions PT/OT ASA 325 qd x 30 days post op DC home today Vital Signs Temp 98.6 F 10/09/18 07:19 Pulse 96 10/09/18 07:19 Resp 16 10/09/18 10:43 BP 136/71 10/09/18 07:19 Pulse Ox 96 10/09/18 07:19 Intake & Output 10/08/18 10/09/18 10/09/18 18:59 06:59 18:59 Intake Total 630 600 120 Output Total 300 850 Balance 330 -250 120 Intake: Oral 630 600 120 Output: Urine 300 850 Other: # Bowel Movements 0 Laboratory Last Values Hgb 9.9 g/dL (12.0-16.0) L 10/09/18 06:00 Hct 28 % (35-47) L 10/09/18 06:00 Plt Count 192 10^3/uL (150-450) 10/09/18 06:00 MPV 7.7 fL (7.4-10.4) 10/09/18 06:00 Sodium 139 mmol/L (135-145) 10/08/18 05:55 Potassium 3.6 mmol/L (3.5-5.0) 10/08/18 05:55 Chloride 102 mmol/L (101-111) 10/08/18 05:55 Carbon Dioxide 36 mmol/L (22-32) H 10/08/18 05:55 Anion Gap 1 mmol/L (2-11) L 10/08/18 05:55 BUN 16 mg/dL (6-24) 10/08/18 05:55 Creatinine 0.76 mg/dL (0.51-0.95) 10/08/18 05:55 Est GFR ( Amer) 92.1 (>60) 10/08/18 05:55 Est GFR (Non-Af Amer) 76.1 (>60) 10/08/18 05:55 BUN/Creatinine Ratio 21.1 (8-20) H 10/08/18 05:55 Glucose 121 mg/dL (70-100) H 10/08/18 05:55 Calcium 8.9 mg/dL (8.6-10.3) 10/08/18 05:55
[2018-10-09] MEDS ORDERED: ValACYclovir (*) 1 GM TAB PO PRN (11:00)
[2018-10-09 11:32] VITALS: BP 120/50
== END 2018-10-09 16:12 | disposition home health service (06) | DRG 470 ==
LOC: AA 05:40 → SSU 09:54
PROVIDERS: ADMIT Orthopaedic Surgery; ATTEND Orthopaedic Surgery
PROC: 0SRB02A Replacement of Left Hip Joint with Metal on Polyethylene Synthetic Substitute, Uncemented, Open Approach (ICD-10-PCS; principal; 2018-10-07 07:30)
DX: M16.12 Unilateral primary osteoarthritis, left hip (principal); D62 Acute posthemorrhagic anemia; F32.9 Major depressive disorder, single episode, unspecified; M25.751 Osteophyte, right hip; F41.9 Anxiety disorder, unspecified; E78.5 Hyperlipidemia, unspecified; K21.9 Gastro-esophageal reflux disease without esophagitis; K44.9 Diaphragmatic hernia without obstruction or gangrene; K58.1 Irritable bowel syndrome with constipation; Z96.641 Presence of right artificial hip joint; Z88.5 Allergy status to narcotic agent; Z83.3 Family history of diabetes mellitus; Z82.49 Family history of ischemic heart disease and other diseases of the circulatory system; Z80.3 Family history of malignant neoplasm of breast; Z80.9 Family history of malignant neoplasm, unspecified
CPT/HCPCS: 36415; 72170; 80048; 85014; 85018; 85049; 88304; 88311; A9270-GY; C1713; C1776; G8978-GP-CJ; G8979-GP-CI; G8987-GO-CI; G8988-GO-CI; J0690; J1100; J1170; J1885; J2250; J2270; J2405; J2704; J2710; J3010; J3490